=== PATIENT | female | born 1960 | race Caucasian/White ===

== ENCOUNTER → 2019-03-13 | Emergency (ER) | payer OTHER ==
[~2019-03-13] VITALS: Ht 165.1 cm; Wt 68.0 kg
[~2019-03-13] MED LIST: BENADRYL25 MG PO; DUI500 PO; MEDROL8 MG PO; SYNTHROID50 MCG PO
== END | disposition home or self-care (01) ==
LOC: ER 00:03
DX: L23.9 Allergic contact dermatitis, unspecified cause (principal)